=== PATIENT | female | born 1965 | race Hispanic/Latino ===

== ENCOUNTER 2017-06-07 17:02 | Emergency (ER) | payer MEDICAID, OTHER ==
[2017-06-07 17:15] VITALS: BMI 27.1
[2017-06-07 17:22] VITALS: BP 132/88; PULSE 95; RESP 18; TEMP 98.5; O2SAT 97
[2017-06-07] MEDS ORDERED: oxyCODONE 10 mg Immediate Release Tab PO STA (17:49)
[2017-06-07] MEDS ORDERED: oxyCODONE 5 mg Immediate Release Tab ONE (17:58)
--- NOTE | 2017-06-07 18:16 | C.PDOC ---
History Of Present Illness 51 yr old female with PMHx of Lupus and chronic pain, presents to the ER with complaints of right rib and left knee pain, s/p trip and fall 1.5 weeks ago. patient states she was in [place] and was seen at a ER there, XRays were negative for any fractures. Patient states she does not have any pain medicine. Denies new injuries, back pain, weakness or numbness. Time Seen by Provider: 06/07/17 17:36 Chief Complaint (Nursing): Rib Injury History Per: Patient History/Exam Limitations: no limitations Onset/Duration Of Symptoms: Days (1.5 weeks ) Current Symptoms Are (Timing): Still Present Past Medical History Reviewed: Historical Data, Nursing Documentation, Vital Signs Vital Signs: Last Vital Signs Temp 98.5 F 06/07/17 17:15 Pulse 95 H 06/07/17 17:15 Resp 18 06/07/17 17:15 BP 132/88 06/07/17 17:15 Pulse Ox 97 06/07/17 18:17 - Medical History PMH: Arthritis, Back Problems (HENIATED DISC), Deep Vein Thrombosis - [facility] Procedures CLOSED ENDOSCOPIC BIOPSY OF LUNG (05/28/14) IMMOBILIZ/WOUND ATTN NEC (01/26/14) OTHER CAST APPLICATION (01/26/14) Family History: States: No Known Family Hx - Social History Hx Tobacco Use: No Hx Alcohol Use: No Hx Substance Use: No - Immunization History Hx Tetanus Toxoid Vaccination: No Hx Influenza Vaccination: No Hx Pneumococcal Vaccination: No Review Of Systems Except As Marked, All Systems Reviewed And Found Negative. Musculoskeletal: Positive for: Other ((+) Left knee pain. Right rib pain.). Negative for: Back Pain Neurological: Negative for: Weakness, Numbness Physical Exam - Physical Exam Appears: Non-toxic, No Acute Distress Skin: Warm, Dry, No Rash Head: Atraumatic, Normacephalic Eye(s): bilateral: Normal Inspection, PERRL, EOMI Oral Mucosa: Moist Chest: Symmetrical, No Tenderness Cardiovascular: Rhythm Regular, No Murmur Respiratory: Normal Breath Sounds, No Rales, No Rhonchi, No Stridor, No Wheezing Back: Normal Inspection, No CVA Tenderness Extremity: Normal ROM, No Swelling Neurological/Psych: Oriented x3, Normal Speech, Normal Motor ED Course And Treatment O2 Sat by Pulse Oximetry: 97 (RA ) Pulse Ox Interpretation: Normal Medical Decision Making Medical Decision Making: PLAN: * Oxycodone PO Disposition - [facility] - Disposition: HOME/ ROUTINE Disposition Time: 17:50 Condition: GOOD Additional Instructions: Thank you for letting us take care of you today. Your provider was Dr. Winn. You were treated for chronic pain. The emergency medical care you received today was directed at your acute symptoms. If you were prescribed any medication, please fill it and take as directed. It may take several days for your symptoms to resolve. Return to the Emergency Department if your symptoms worsen, do not improve, or if you have any other problems. Please contact your doctor or call one of the physicians/clinics you have been referred to that are listed on the Patient Visit Information form that is included in your discharge packet. Bring any paperwork you were given at discharge with you along with any medications you are taking to your follow up visit. Our treatment cannot replace ongoing medical care by a primary care provider (PCP) outside of the emergency department. Thank you for allowing the [facility] team to be part of your care today. You must follow up with your primary doctor for pain management medication in the next 2-3 days. Prescriptions: oxyCODONE [oxyCODONE Immediate Release Tab] 5 mg PO Q6 PRN #15 tab PRN Reason: Pain, Severe (8-10) Instructions: Chronic Pain (ED) Forms: for; to (do) Centers (Chinese) - Clinical Impression Clinical Impression: Chronic pain - Scribe Statement The provider has reviewed the documentation as recorded by the Lazaro Lindsey Provider Attestation: All medical record entries made by the Lazaro were at my direction and personally dictated by me. I have reviewed the chart and agree that the record accurately reflects my personal performance of the history, physical exam, medical decision making, and the department course for this patient. I have also personally directed, reviewed, and agree with the discharge instructions and disposition.
== END 2017-06-07 18:03 | disposition home or self-care (01) ==
LOC: C.ER 17:02
DX: G89.29 Other chronic pain (principal)

== ENCOUNTER 2019-03-31 12:15 | Emergency (ER) | payer MEDICAID, OTHER ==
[2019-03-31 12:34] VITALS: BMI 31.8
[2019-03-31 13:09] LABS: EOS # 0.1 K/uL (0.0-0.7); LYMPH # 2.1 K/uL (1.0-4.3); MEAN CORPUSCULAR HGB CONC 33.6 g/dL (33.0-37.0); RED CELL DISTRIBUTION WIDTH 17.5 % (11.5-14.5)
[2019-03-31 13:14] LABS: INR 1.2; PROTHROMBIN TIME 12.8 SECONDS (9.7-12.2)
[2019-03-31 13:18] LABS: BASO # 0.2 K/uL (0.0-0.2); BASO % 1.7 % (0.0-2.0); EOS % 1.4 % (0.0-4.0); HEMOGLOBIN 12.8 g/dL (11.0-16.0); LYMPH % 22.4 % (20.0-40.0); MEAN CELL VOLUME 87.7 fL (81.0-99.0); MEAN CORPUSCULAR HEMOGLOBIN 29.5 pg (27.0-31.0); MEAN PLATELET VOLUME 10.1 fL (7.2-11.7); MONO # 1.1 K/uL (0.0-0.8); MONO % 11.5 % (0.0-10.0); NEUT # 5.8 K/uL (1.8-7.0); RBC 4.34 Mil/uL (3.80-5.20); WHITE BLOOD COUNT 9.3 K/uL (4.8-10.8)
--- NOTE | 2019-03-31 13:34 | C.PDOC ---
History Of Present Illness 53 year old female presents to ED with complaint of right lateral lower rib pain for the past 2 days. Patient has a history of rib fracture to the left lateral side in 2017. Patient takes percocet, tramadol, and Coumadin for chronic pain issues. She is visiting from [place]. 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 She is requesting an INR and platelet check. She denies trauma, SOB, weakness, or numbness. Time Seen by Provider: 03/31/19 12:37 Chief Complaint (Nursing): Pain, Chronic History Per: Patient History/Exam Limitations: no limitations Onset/Duration Of Symptoms: Days (2) Current Symptoms Are (Timing): Still Present Past Medical History Reviewed: Historical Data, Nursing Documentation, Vital Signs Vital Signs: Last Vital Signs Temp 98.8 F 03/31/19 12:28 Pulse 69 03/31/19 12:28 Resp 18 03/31/19 12:28 BP 137/85 03/31/19 12:28 Pulse Ox 100 03/31/19 12:28 Primary Care Provider: Non [facility] Provider, - Medical History PMH: Arthritis, Back Problems (HENIATED DISC), Deep Vein Thrombosis Surgical History: No Surg Hx - [facility] Procedures CLOSED ENDOSCOPIC BIOPSY OF LUNG (05/28/14) IMMOBILIZ/WOUND ATTN NEC (01/26/14) OTHER CAST APPLICATION (01/26/14) Family History: States: Unknown Family Hx - Social History Hx Tobacco Use: No Hx Alcohol Use: No Hx Substance Use: No - Immunization History Hx Tetanus Toxoid Vaccination: No Hx Influenza Vaccination: No Hx Pneumococcal Vaccination: No Review Of Systems Except As Marked, All Systems Reviewed And Found Negative. Cardiovascular: Positive for: Chest Pain (right lateral lower rib pain) Physical Exam - Physical Exam Appears: Non-toxic, No Acute Distress, Other (obese, female) Skin: Normal Color, Warm, Dry Head: Atraumatic, Normacephalic Neck: Normal ROM, Supple Chest: Symmetrical, No Deformity, Tenderness (to the right lateral rib area, intercostal; no rash), No Ecchymosis Cardiovascular: Rhythm Regular, No Murmur Respiratory: No Accessory Muscle Use, No Rales, No Rhonchi, No Wheezing Extremity: Capillary Refill (<2 seconds) Neurological/Psych: Oriented x3, Normal Speech, Normal Cognition ED Course And Treatment - Laboratory Results Result Diagrams: 03/31/19 13:04 03/31/19 13:23 Lab Results: PT 12.8 SECONDS (9.7-12.2) H 03/31/19 13:04 INR 1.2 03/31/19 13:04 Lab Interpretation: Abnormal (chronic thrombocytopenia, INR 1.2) O2 Sat by Pulse Oximetry: 100 (in RA) Pulse Ox Interpretation: Normal - Radiology CXR: Interpreted by Me CXR Interpretation: Yes: No Acute Disease Progress Note: Labs ordered with CBC, INR, and CXR. Patient given Tylenol PO. Medical Decision Making Medical Decision Making: R rib area discomfort, digitally reproducable LOW susp of lung parenchymal issues INR 1.2 is sub-theraputic for chronic DVT/PE tx, but Plts 43 c/w chronic thrombocytopenia LOW susp of new DVT/PE Defer chronic anti-coagulation modifications to PMD in [place] Disposition Doctor Will See Patient In The: Office Counseled Patient/Family Regarding: Studies Performed, Diagnosis - Disposition Disposition: HOME/ ROUTINE Disposition Time: 13:59 Condition: GOOD Forms: [employer] (Greenlandic) - Clinical Impression Clinical Impression: Chest wall discomfort - Scribe Statement The provider has reviewed the documentation as recorded by the Scribe (Cindy Rodriguez) All medical record entries made by the Scribe were at my direction and personally dictated by me. I have reviewed the chart and agree that the record accurately reflects my personal performance of the history, physical exam, medical decision making, and the department course for this patient. I have also personally directed, reviewed, and agree with the discharge instructions and disposition.
[2019-03-31 13:39] LABS: ALB/GLOB RATIO 1.7 (1.0-2.1); ALBUMIN 4.1 g/dL (3.5-5.0); ALT/SGPT 14 U/L (9-52); AST/SGOT 22 U/L (14-36); BLOOD UREA NITROGEN 13 mg/dL (7-17); CALCIUM 8.7 mg/dl (8.6-10.4); GFR NON-AFRICAN AMERICAN > 60
--- NOTE | 2019-03-31 14:27 | RAD ---
Date of service: 03/31/2019 HISTORY: Right lateral rib pain COMPARISON: 05/28/2014. TECHNIQUE: Chest PA and lateral FINDINGS: LINES AND TUBES: None. LUNG AND PLEURA: The lungs are hyperinflated and there is peribronchial thickening with chronic changes in both lungs. No pleural effusion or pneumothorax. HEART AND MEDIASTINUM: The heart is not enlarged. No aortic atherosclerotic calcifications present. The hilar and mediastinal contours are within normal limits. SKELETAL STRUCTURES: The bony structures are within normal limits for the patient's age. VISUALIZED UPPER ABDOMEN: Normal. OTHER FINDINGS: None. IMPRESSION: No active pulmonary disease. COPD.
[2019-03-31 14:28] VITALS: BP 122/77; PULSE 73; RESP 19; TEMP 97.8; O2SAT 96
== END 2019-03-31 14:26 | disposition home or self-care (01) ==
LOC: C.ER 12:15
DX: R07.89 Other chest pain (principal); Z86.711 Personal history of pulmonary embolism; Z86.718 Personal history of other venous thrombosis and embolism; Z79.01 Long term (current) use of anticoagulants